=== PATIENT | male | born 1995 | race Caucasian/White ===

== ENCOUNTER 2016-12-24 23:56 | Emergency (ER) | payer BC ==
[2016-12-25] MEDS ORDERED: Morphine INJ* 4 MG/ML 1 ML CARPUJECT IV ONE (00:26)
[2016-12-25] MEDS ORDERED: NS 0.9% 1000 ML* 1,000 ML IV ONE (00:26)
[2016-12-25] MEDS ORDERED: Al Hydrox/Mg Hydrox/Simet LIQ* 30 ML UDC PO ONE (00:26)
--- NOTE | 2016-12-25 00:26 | ED ---
Abdominal Pain/Male - HPI Summary HPI Summary: Patient arrives to ED with cc of epigastric pain at 8/10 intermittently since Monday. he states he feels "gassy" and has tried to take zantac without relief. Denies constipation, diarrhea or vomiting, but notes to some intermittent nausea. Nothing makes the pain better or worse. Pain is worse at night and with leaning forward. Denies fever, sweats or chills. Last BM today. Denies abx use or travel history. Patient is a student and notes nothing has changed with diet. Denies sick contacts. - History of Current Complaint Stated Complaint: ABD PAIN Time Seen by Provider: 12/25/16 00:17 Hx Obtained From: Patient Onset/Duration: Sudden Onset Timing: Intermittent Severity Initially: Moderate Severity Currently: Moderate Pain Intensity: 5 Pain Scale Used: 0-10 Numeric Location: Epigastric Radiates: No Character: Sharp Aggravating Factor(s): Nothing Alleviating Factor(s): Nothing Associated Signs And Symptoms: Positive: Nausea - Risk Factors Testicular Torsion: Negative Cardiac Risk Factors: Negative - Allergies/Home Medications Allergies/Adverse Reactions: Allergies Allergy/AdvReac Type Severity Reaction Status Date / Time No Known Allergies Allergy Verified 12/25/16 01:03 PMH/Surg Hx/FS Hx/Imm Hx Previously Healthy: Yes - Social History Occupation: Student Lives: Alone Hx Substance Use: No Substance Use Type: Reports: None Hx Tobacco Use: No Do You Chew or Dip Tobacco: No Have You Chewed or Dipped Tobacco in the LAST YEAR: No Review of Systems Constitutional: Negative Cardiovascular: Negative Respiratory: Negative Positive: Abdominal Pain, Nausea Genitourinary: Negative Positive: no symptoms reported, see HPI Musculoskeletal: Negative Neurological: Negative Psychological: Normal All Other Systems Reviewed And Are Negative: Yes Physical Exam Triage Information Reviewed: Yes Vital Signs Reviewed: Yes Appearance: Positive: Well-Appearing, Well-Nourished, Ill-Appearing, Pain Distress Skin: Positive: Warm, Skin Color Reflects Adequate Perfusion Eyes: Positive: Normal, LIOR, Conjunctiva Clear Neck: Positive: Supple, No Lymphadenopathy Respiratory/Lung Sounds: Positive: Clear to Auscultation, Breath Sounds Present Cardiovascular: Positive: Normal Abdomen Description: Positive: Nontender - non tender on palpation. patient feeling pain epigastrically without palpation, and is not worse with palpation. no pain on palpation in all 4 quadrants. no organomegaly. mcburneys point without tenderness, murphys sign negative. patient is guarding, but d/t pain per patient, No Organomegaly Bowel Sounds: Positive: Hyperactive Neurological: Positive: Normal, Alert, Oriented to Person Place, Time, Facial Symmetry Psychiatric: Positive: Normal Diagnostics - Laboratory Result Diagrams: 12/25/16 01:00 12/25/16 01:00 Lab Statement: Any lab studies that have been ordered have been reviewed, and results considered in the medical decision making process. Abdominal Pain Fem Course/Dx - Course Course Of Treatment: Patient given zofran and 4mg morphine for relief. Labs WNL. Patient feeling better after 1 hour. Denies current pain. Able to discharge home with close follow up. Labs and UA revealed no white count and patient afebrile. Will DC home with return precautions. patient encouraged to use maalox for breakthrough epigastric pain, continue with zantac once per day and use zofran as needed for associated nausea. patient agreeable to plan. - Diagnoses Differential Diagnosis/HQI/PQRI: Appendicitis, Constipation, Gall Bladder Disease Provider Diagnoses: Abdominal pain Discharge - Discharge Plan Condition: Stable Disposition: HOME Patient Education Materials: Acute Abdominal Pain (ED), Gas and Bloating (ED) Referrals: [facility] JONATHAN Lowe [Primary Care Provider] - Additional Instructions: Maalox for breakthrough pain. Continue with Zantac. If symptoms become worse, come back to ED or see your PCP. Zofran as needed for nausea. Tylenol 650mg three times daily for pain. Drink plenty of fluids and eat a bland diet. Soup, crackers, breads and rice.
[2016-12-25 01:21] LABS: Hematocrit 47 % (42-52); Hemoglobin 16.4 g/dl (14.0-18.0); Mean Corpuscular HGB Conc 35 g/dl (31-36); Mean Corpuscular Hemoglobin 31 pg (27-31); Mean Corpuscular Volume 90 fL (80-94); Mean Platelet Volume 9 um3 (7.4-10.4); Red Blood Count 5.25 10^6/ul (4.0-5.4); Red Cell Distribution Width 13 % (10.5-15); White Blood Count 6.2 10^3/ul (3.5-10.8)
[2016-12-25 01:38] LABS: Urine Bilirubin Negative (Negative); Urine Glucose Negative (Negative); Urine Nitrite Negative (Negative)
[2016-12-25 01:42] LABS: ALT 45 U/L (7-52); AST 28 U/L (13-39); Albumin 4.6 g/dL (3.2-5.2); Alkaline Phosphatase 55 U/L (34-104); Anion Gap 9 mmol/L (2-11); BUN/Creatinine Ratio 26.5 (8-20); Blood Urea Nitrogen 31 mg/dL (6-24); C Reactive Protein < 1.00 mg/L (< 5.00); CO2 Carbon Dioxide 23 mmol/L (22-32); Calcium 9.7 mg/dL (8.6-10.3); Chloride 103 mmol/L (101-111); EGFR African American 102.2 (>60); EGFR Non-African American 79.5 (>60); Glucose 108 mg/dL (70-100); Lipase 26 U/L (11.0-82.0); Magnesium 1.9 mg/dL (1.9-2.7); Sodium 135 mmol/L (133-145); Total Protein 7.6 g/dL (6.4-8.9)
[2016-12-25] MEDS ORDERED: Ondansetron ODT TAB* 4 MG PO ONE (01:43)
[2016-12-25 01:55] VITALS: BP 115/65
== END 2016-12-25 01:53 | disposition home or self-care (01) ==
LOC: ED 23:56
DX: R11.0 Nausea (principal); R10.9 Unspecified abdominal pain
CPT/HCPCS: 36415; 80053; 81003; 83690; 83735; 85025; 86140; 96374; 99283; A9270-GY; J2270

== ENCOUNTER 2017-07-13 17:03 | Emergency (ER) | payer BC ==
[2017-07-13 20:01] VITALS: BP 141/70
--- NOTE | 2017-07-14 11:43 | ED ---
Headache - HPI Summary HPI Summary: Patient presents from [place] with acute onset ANDRADE which occurred this afternoon and lasted less than 1 hour prior to arrival to [place]. The ANDRADE was located diffusely throughout and aching. Denies photophobia or auras. He states he had some numbness in his right hand which lasted about 30 seconds which resolved immediately, but ANDRADE continued. Denies hx of migraines. Denies neuro symptoms including confusion, memory loss, visual changes, weakness, numbness and tingling. Denies any symptoms currently. He states he has been under a lot of stress recently and has not slept much. This is not worst of life and he has no residual symptoms, stating he feels "100%" at this time. He states he is very healthy, does not smoke and eats well. - History Of Current Complaint Chief Complaint: EDHeadache Stated Complaint: HEADACHE,NUMBNESS IN RT HAND & FACE Time Seen by Provider: 07/13/17 17:47 Hx Obtained From: Patient Onset/Duration: Sudden Onset Initially Headache Was: Initial Pain Scale(0-10)= - 8 Currently Pain Is: Current Pain Scale(0-10)= - 0 Timing: Intermittent, Lasting:, Minutes Character: Sharp Location of Headache: Diffuse Aggravating Factor: Other - spontaneous resolution Allevating Factors: Nothing Associated Signs And Symptoms: Negative - Risk Factors SAH Risk Factors: Negative Meningitis Risk Factors: Negative SDH Risk Factors: Negative - Allergies/Home Medications Allergies/Adverse Reactions: Allergies Allergy/AdvReac Type Severity Reaction Status Date / Time No Known Allergies Allergy Verified 12/25/16 01:03 PMH/Surg Hx/FS Hx/Imm Hx Previously Healthy: Yes - Immunization History Hx Pertussis Vaccination: No Immunizations Up to Date: Unable to Obtain/Confirm Infectious Disease History: Yes Infectious Disease History: Denies: Traveled Outside the [place] in Last 30 Days - Social History Occupation: Student Lives: With Family Alcohol Use: Occasionally Hx Substance Use: No Substance Use Type: Reports: None Hx Tobacco Use: No Smoking Status (MU): Never Smoked Tobacco Review of Systems Constitutional: Negative Negative: Fever, Chills, Fatigue Eyes: Negative Cardiovascular: Negative Respiratory: Negative Positive: no symptoms reported, see HPI Musculoskeletal: Negative Skin: Negative Positive: Headache - since resolved Psychological: Normal All Other Systems Reviewed And Are Negative: Yes Physical Exam Triage Information Reviewed: Yes Vital Signs On Initial Exam: Initial Vitals Temp Pulse Resp BP Pulse Ox 98.5 F 77 16 156/66 100 07/13/17 17:17 07/13/17 17:17 07/13/17 17:17 07/13/17 17:17 07/13/17 17:17 Vital Signs Reviewed: Yes Appearance: Positive: Well-Appearing, Well-Nourished Skin: Positive: Warm, Skin Color Reflects Adequate Perfusion Head/Face: Positive: Normal Head/Face Inspection Eyes: Positive: EOMI, LIOR, Conjunctiva Clear Neck: Positive: Supple, No Lymphadenopathy Respiratory/Lung Sounds: Positive: Clear to Auscultation, Breath Sounds Present Cardiovascular: Positive: Normal, RRR, Pulses are Symmetrical in both Upper and Lower Extremities Musculoskeletal: Positive: Normal, Strength/ROM Intact Neurological: Positive: Normal, Sensory/Motor Intact, Alert, Oriented to Person Place, Time, CN Intact II-III, Reflexes Intact, Normal Gait, Facial Symmetry, Speech Normal. Negative: Abnormal Gait, Cerebellar Dysfunction, Disoriented, Facial Droop, Heel to Toe, Finger to Nose, Ataxic Gait, Pronator Drift Present Psychiatric: Positive: Normal AVPU Assessment: Alert - Rupa Coma Scale Coma Scale Total: 15 Diagnostics - Vital Signs Vital Signs Temp Pulse Resp BP Pulse Ox 07/13/17 20:00 98.1 F 78 17 141/70 07/13/17 17:17 98.5 F 77 16 156/66 100 - Laboratory Lab Statement: Any lab studies that have been ordered have been reviewed, and results considered in the medical decision making process. Headache Course/Dx - Course Course Of Treatment: Patient evaluated for acute onset ANDRADE. Considered SAH. He denies previous heart problems or brain pathologies in the past. Pain has since resolved and not worst of life. Discussed treatment options with patient who wants to defer any imaging based on no current symtoms. He is aware and agrees to return if symptoms return or worsen. He denies other symptoms and states he feels he is at "100%" right now. He states he came here to the ED afer evaluation at [place] and wanted him to come here for liability reasons. It is unlikely this is new onset migraines and he denied any sensitivity to light. He has been having insomina lately with his busy schedule and feels that is contributory. He is Ok with discharge and return precautions discussed. Treatment options explained and patient prefers to go home and return if needed. - Diagnoses Differential Diagnosis/HQI/PQRI: Migraine, Sinus Headache, Tension Headache Provider Diagnoses: Headache Discharge - Discharge Plan Condition: Stable Disposition: HOME Patient Education Materials: Acute Headache (ED) Referrals: [facility] - José LEZAMA [Primary Care Provider] - Additional Instructions: As discussed - return to the ED if anything becomes worse At this time, I do not feel you are at a concern for any emergency pathology requiring admission or imaging Take Tylenol 650mg for any mild headache Try to sleep!
== END 2017-07-13 20:01 | disposition home or self-care (01) ==
LOC: ED 17:03
DX: R51 Headache (principal)
CPT/HCPCS: 99281

== ENCOUNTER 2017-11-09 19:03 | Emergency (ER) | payer BC ==
[2017-11-09 19:19] VITALS: BP 141/64
== END 2017-11-09 19:37 | disposition left against medical advice (07) ==
LOC: ED 19:03
DX: F12.90 Cannabis use, unspecified, uncomplicated (principal); Z53.21 Procedure and treatment not carried out due to patient leaving prior to being seen by health care provider

== ENCOUNTER 2018-07-14 16:08 | Emergency (ER) | payer BC ==
--- NOTE | 2018-07-14 16:40 | RAD ---
HISTORY: trauma COMPARISONS: None VIEWS: 2 , Frontal and lateral views of the right hand FINDINGS: BONE DENSITY: Normal. BONES: There is no displaced fracture. JOINTS: There is no arthropathy. ALIGNMENT: There is no dislocation. SOFT TISSUES: Unremarkable. OTHER FINDINGS: None. IMPRESSION: NO ACUTE OSSEOUS INJURY. IF SYMPTOMS PERSIST, RECOMMEND REPEAT IMAGING.
[2018-07-14 17:13] VITALS: BP 129/64
--- NOTE | 2018-07-14 17:34 | ED ---
Upper Extremity Pain - HPI Summary HPI Summary: Patient is a 22-year-old female presenting to the ED with a chief complaint of right hand pain after punching a wall last evening with alcohol intoxication. He endorses pain directly over the fourth and fifth MCP area without radiation. No ecchymosis or swelling is identified. Denies any numbness or tingling. Able to move all fingers well and is able to flex and extend the wrist without pain. He has never injured the area prior to this. 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 - History of Current Complaint Chief Complaint: EDExtremityUpper Stated Complaint: RT HAND INJURY Time Seen by Provider: 07/14/18 16:13 Hx Obtained From: Patient Mechanism Of Injury: Direct Blow Onset/Duration: Started Hours Ago Timing: Constant Severity Initially: Moderate Severity Currently: Moderate Pain Location: Arm Character: Aching Aggravating Factor(s): Nothing Alleviating Factor(s): Nothing Associated Signs & Symptoms: Positive: Negative Related History: Dominant Hand Right - Risk Factors Non-Orthopedic Risk Factor: Negative Septic Arthritis Risk Factor: Negative Compartment Syndrome Risk Factors: Pain - Allergies/Home Medications Allergies/Adverse Reactions: Allergies Allergy/AdvReac Type Severity Reaction Status Date / Time No Known Allergies Allergy Verified 07/14/18 16:18 PMH/Surg Hx/FS Hx/Imm Hx Previously Healthy: Yes - Immunization History Hx Pertussis Vaccination: No Immunizations Up to Date: Yes Infectious Disease History: No Infectious Disease History: Denies: Traveled Outside the [place] in Last 30 Days - Social History Occupation: Unemployed, Student Lives: Dormitory/Roommates Alcohol Use: Weekly Alcohol Amount: 2x week Hx Substance Use: No Substance Use Type: Reports: None Hx Tobacco Use: No Smoking Status (MU): Never Smoked Tobacco Review of Systems Constitutional: Negative Negative: Fever, Chills, Skin Diaphoresis Negative: Palpitations, Chest Pain Negative: Shortness Of Breath, Cough Positive: Arthralgia - right hand pain, Myalgia Skin: Negative Neurological: Negative All Other Systems Reviewed And Are Negative: Yes Physical Exam Triage Information Reviewed: Yes Vital Signs On Initial Exam: Initial Vitals Temp Pulse Resp BP Pulse Ox 97.7 F 110 17 146/77 99 07/14/18 16:15 07/14/18 16:15 07/14/18 16:15 07/14/18 16:15 07/14/18 16:15 Vital Signs Reviewed: Yes Appearance: Positive: Well-Appearing, Well-Nourished Skin: Positive: Warm, Skin Color Reflects Adequate Perfusion Eyes: Positive: EOMI, LIOR, Conjunctiva Clear Neck: Positive: Supple, No Lymphadenopathy Respiratory/Lung Sounds: Positive: Clear to Auscultation, Breath Sounds Present Cardiovascular: Positive: RRR, Pulses are Symmetrical in both Upper and Lower Extremities Musculoskeletal: Positive: Pain @ - right hand pain Neurological: Positive: Speech Normal Psychiatric: Positive: Normal, Affect/Mood Appropriate AVPU Assessment: Alert - #2 Diagnostics - Vital Signs Vital Signs Temp Pulse Resp BP Pulse Ox 07/14/18 17:11 98.5 F 106 16 129/64 98 07/14/18 16:15 97.7 F 110 17 146/77 99 - Laboratory Lab Statement: Any lab studies that have been ordered have been reviewed, and results considered in the medical decision making process. Course/Dx - Course Course Of Treatment: X-ray obtained which is negative for any acute findings. However, patient is encouraged to continue follow-up with orthopedics if any symptoms worsen or do not change. He will continue with ice and ibuprofen at this time. On physical examination, no swelling or ecchymosis noted. Pulses + 2 intact bilaterally. No numbness or tingling identified. - Diagnoses Differential Diagnosis/HQI/PQRI: Positive: Fracture (Open), Fracture (Closed), Strain, Sprain Provider Diagnoses: Contusion, hand Discharge - Sign-Out/Discharge Documenting (check all that apply): Patient Departure - Discharge Plan Condition: Stable Disposition: HOME Referrals: Manuel Yu MD [Medical Doctor] - No Primary Care Phys,NOPCP [Primary Care Provider] - Additional Instructions: Ibuprofen 600mg three times daily - Billing Disposition and Condition Condition: STABLE Disposition: Home
== END 2018-07-14 17:11 | disposition home or self-care (01) ==
LOC: ED 16:08
DX: S60.221A Contusion of right hand, initial encounter (principal); M79.641 Pain in right hand; W22.01XA Walked into wall, initial encounter; Y92.9 Unspecified place or not applicable
CPT/HCPCS: 99281